=== PATIENT | male | born 1985 | race Caucasian/White ===

== ENCOUNTER 2020-10-19 12:07 | Emergency (ER) | payer OTHER ==
[~2020-10-19] VITALS: Ht 185.4 cm; Wt 90.7 kg
[~2020-10-19 12:07] MED LIST: CELEXA 20 MG TA20 M1 PO; CEPHALEXIN 500500 M2 PO; CLEOCIN HCL150 MG PO; CLONIDINE0.1; DESYREL50 MG; KEFLEX500 MG PO; MUCINEX600 MG PO; NOHOMEMEDICATIONS; NORCO 5-325 TA1 EACH PO; PERCOCET 5-3251 EACH PO; PREDNISONE 10 M10 M1 PO; PROAIR HFA8.5 GM PO; VICODIN 5-5001 EACH PO; ZPAK PO; [UNRECOGNIZED DRUG - OTHER] OT
[2020-10-19] MEDS ORDERED: ZPAK PO (12:43)
[2020-10-19 12:53] VITALS: BP 135/86
== END 2020-10-19 12:54 | disposition home or self-care (01) ==
LOC: M.ERS 12:07
DX: H66.92 Otitis media, unspecified, left ear (principal); F17.210 Nicotine dependence, cigarettes, uncomplicated; Z88.0 Allergy status to penicillin; Z86.14 Personal history of Methicillin resistant Staphylococcus aureus infection